=== PATIENT | female | born 1935 | race Caucasian/White ===

== ENCOUNTER 2018-10-21 06:00 | Emergency (ER) | payer SELFPAY ==
[~2018-10-21] VITALS: Ht 160 cm; Wt 70.0 kg
[2018-10-21 06:07] VITALS: Ht 160 cm; Wt 70.0 kg
[2018-10-21 06:43] VITALS: BP 134/74
== END 2018-10-21 06:48 | disposition home or self-care (01) ==
LOC: ED 06:00
DX: B02.9 Zoster without complications (principal); I10 Essential (primary) hypertension; E11.9 Type 2 diabetes mellitus without complications; E78.00 Pure hypercholesterolemia, unspecified; Z86.2 Personal history of diseases of the blood and blood-forming organs and certain disorders involving the immune mechanism

== ENCOUNTER 2018-10-22 16:06 | Emergency (ER) | payer SELFPAY ==
[~2018-10-22] VITALS: Ht 167.6 cm; Wt 71.2 kg
[2018-10-22 16:45] VITALS: Ht 167.6 cm; Wt 71.2 kg
[2018-10-22 18:37] VITALS: BP 136/76
== END 2018-10-22 18:37 | disposition home or self-care (01) ==
LOC: ED 16:06
DX: B02.9 Zoster without complications (principal); E11.9 Type 2 diabetes mellitus without complications; I10 Essential (primary) hypertension; E78.00 Pure hypercholesterolemia, unspecified; Z76.0 Encounter for issue of repeat prescription; Z86.2 Personal history of diseases of the blood and blood-forming organs and certain disorders involving the immune mechanism

== ENCOUNTER 2020-04-27 11:24 | Emergency (ER) | payer MEDICAID ==
[~2020-04-27] VITALS: Ht 160 cm; Wt 65.3 kg
[~2020-04-27 11:24] MED LIST: ALENDRONATE SOD35 M3 PO; HYDROCHLOROTHIA25 MG PO; LISINOPRIL20 MG PO; NORCO1 TA2 PO; QUALITY CHOICE325 MG PO
[2020-04-27 11:45] VITALS: BP 168/58; Ht 160 cm; Wt 65.3 kg
== END 2020-04-27 12:01 | disposition left against medical advice (07) ==
LOC: ED 11:24
DX: Z53.21 Procedure and treatment not carried out due to patient leaving prior to being seen by health care provider (principal)